=== PATIENT | male | born 1950 | race Two or more races ===

== ENCOUNTER 2019-01-23 09:40 | Emergency (ER) | payer MEDICARE ==
[~2019-01-23] VITALS: Ht 177.8 cm; Wt 84.8 kg
[~2019-01-23 09:40] MED LIST: AMLO5TAB4 PO; CLOP75TA15 PO; DULO60CA45 PO; LISI-659 PO; SIMV20TA2 PO
--- NOTE | 2019-01-23 09:45 | NUR ---
BIBRA 79 FROM HOME C/O GEN WEAKNESS AND R GROIN PAIN. BG 57, D10 GIVEN ENROUTE TO SO. TO ER BED 9, HOOKED TO MONITOR, CHANGED TO GOWN, PROVIDED W WARM BLANKET, AWAITING MD REILLY.
--- NOTE | 2019-01-23 09:48 | NUR ---
DR VELASQUEZ AT BEDSIDE
[2019-01-23 10:08] LABS: BASOPHILS % (AUTO) 0.4 % (0.0-2.0); EOSINOPHILS % (AUTO) 0.4 % (0.0-6.0); HEMATOCRIT 43 % (39-51); HEMOGLOBIN 14.4 g/dL (13.5-17.5); LYMPHOCYTES # (AUTO) 0.7 /CMM (0.8-4.8); LYMPHOCYTES % (AUTO) 9.6 % (20.0-44.0); MEAN CORPUSCULAR HGB CONC 33 g/dl (31.0-36.0); MEAN CORPUSCULAR VOLUME 96 fL (80-96); MONOCYTES # (AUTO) 0.3 /CMM (0.1-1.30); MONOCYTES % (AUTO) 4.1 % (2.0-12.0); NEUTROPHILS # (AUTO) 6.6 /CMM (1.8-8.9); NEUTROPHILS % (AUTO) 85.5 % (43.0-81.0); PLATELET COUNT (AUTO) 216 /CMM (150-450); RED BLOOD CELL COUNT(AUTO) 4.52 MIL/uL (4.5-6.0); WHITE BLOOD COUNT (AUTO) 7.8 K/uL (4.3-11.0)
[2019-01-23 10:15] LABS: CALCIUM, SERUM 8.7 mg/dL (8.5-10.1); CARBON DIOXIDE 32 mmol/L (21-32); CHLORIDE 100 mmol/L (98-107); CREATININE 1.1 mg/dL (0.6-1.3); GLUCOSE 249 mg/dL (74-106); POTASSIUM 3.8 mmol/L (3.5-5.1); SODIUM SERUM 137 mmol/L (136-145); UREA NITROGEN, BLOOD 12 mg/dL (7-18)
--- NOTE | 2019-01-23 10:19 | NUR ---
WHEELED OUT VIA RNEY FOR CT SCAN
[2019-01-23 10:21] LABS: ALANINE AMINOTRANSFERASE 18 U/L (12-78); ALBUMIN 3.7 g/dL (3.4-5.0); ALKALINE PHOSPHATASE 69 U/L (46-116); ASPARTATE AMINOTRANSFERASE 20 U/L (15-37); BILIRUBIN,DIRECT 0.1 mg/dL (0.0-0.2); BILIRUBIN,TOTAL 0.4 mg/dL (0.2-1.0); TOTAL PROTEIN, SERUM 7.3 g/dL (6.4-8.2)
[2019-01-23] MEDS ORDERED: CHOL100044 PO (11:18)
[2019-01-23] MEDS ORDERED: HYDR25TA4 PO (11:18)
[2019-01-23] MEDS ORDERED: PARO40TA4 PO (11:18)
[2019-01-23] MEDS ORDERED: CYAN100T3 PO (11:18)
[2019-01-23] MEDS ORDERED: CLON0.5T12 PO (11:18)
[2019-01-23] MEDS ORDERED: ASPI-1169 PO (11:18)
[2019-01-23] MEDS ORDERED: MAGN400T26 PO (11:18)
[2019-01-23] MEDS ORDERED: VANCOMYCIN 1 GM in IV D5W 250 ML IV ONE (11:30)
[2019-01-23] MEDS ORDERED: IV NS 0.9% 1,000 ML BAG IV ONE (11:30)
[2019-01-23 11:33] LABS: APPEARANCE,URINE Clear (CLEAR); BILIRUBIN,URINE Negative (NEGATIVE); BLOOD, URINE Negative Ery/uL (NEGATIVE); COLOR,URINE Yellow (YELLOW); KETONES,URINE Negative (NEGATIVE); LEUKOCYTE ESTERASE ,URINE Negative (NEGATIVE); NITRITE, URINE Negative (NEGATIVE); PH,URINE 8.5 (5.0-8.0); PROTEIN,URINE Trace mg/dl (NEGATIVE); UGLUCOSE 100 MG/DL mg/dL (NEGATIVE); UROBILINOGEN,URINE 0.2 EU/dL (0.2)
[2019-01-23 11:40] LABS: BACTERIA,URINE Rare /HPF (None Seen); RBC,URINE 0-3 /HPF (0-2); WBC,URINE 0-3 /HPF (0-3)
[2019-01-23 11:41] LABS: SQUAMOUS EPITHELIAL CELL,UR Few /HPF (None Seen); URINE AMORPHOUS PHOSPHATES Moderate /HPF (None Seen)
[2019-01-23] MEDS ORDERED: PIPERACILLIN /TAZOBACTAM 3.375 G in IV D5W 50 ML IV SCH (12:00)
--- NOTE | 2019-01-23 12:11 | NUR ---
Waiting on the insurance dr in order to have a dr to dr call.
--- NOTE | 2019-01-23 12:33 | NUR ---
DR. ROMERO CALLED FOR MD TO MD REPORT.
[2019-01-23 14:56] VITALS: BP 151/69
--- NOTE | 2019-01-23 15:01 | NUR ---
JORGE L MCGEE CALLED TO INFORM THAT PT WILL BE TRANSFERRED TO [facility] RM [id number] CALL REPORT [phone]
--- NOTE | 2019-01-23 15:21 | NUR ---
[facility] ETA 45-60 ACCEPTING MD MENDOZA
--- NOTE | 2019-01-23 15:28 | NUR ---
REPORT GIVEN TO RUPALI JEONG (TELE UNIT) [facility]
--- NOTE | 2019-01-23 16:23 | NUR ---
Patient discharged to [facility] in stable condition. Written and verbal after care instructions given. PT WILL BE BROUGHT TO [facility]
== END 2019-01-23 16:26 | disposition short-term general hospital (02) ==
LOC: ER 09:51
DX: G93.40 Encephalopathy, unspecified (principal); I10 Essential (primary) hypertension; Z86.73 Personal history of transient ischemic attack (TIA), and cerebral infarction without residual deficits; Z98.890 Other specified postprocedural states; Z79.82 Long term (current) use of aspirin; Z79.899 Other long term (current) drug therapy
CPT/HCPCS: 36415; 70450; 71045; 80048; 80076; 81001; 82962; 83605 ×2; 84484; 85025; 85730; 87040 ×2; 87081; 87086; 93005; 96365; 96367; 99285; J2543; J3370; J7030; J7040; J7060 ×2; 81000-TC